=== PATIENT | female | born 1970 | race Caucasian/White ===

== ENCOUNTER 2025-05-08 11:01 | Emergency (ER) | payer BC, SELFPAY ==
[2025-05-08 11:03] VITALS: BP 128/80
--- NOTE | 2025-05-08 12:54 | ED.GENMED ---
History of Present Illness
<SARA Fuentes - Last Filed: 05/08/25 17:34>
General
Chief Complaint: Musculo-Skeletal Complaint
Source: patient
Exam Limitations: none
Time Seen by Provider: 05/08/25 12:02
Nursing documentation reviewed up to this point in time: agreed with
History of Present Illness
History of Present Illness:
55 yr old female presents to the ER for evaluation. Patient has a history of chondrosarcoma and right humerus and is followed by [facility] reconstructive surgery and trauma surgery. She had initial surgery August 2020 for however fell in
April and had additional surgery and reconstruction May 02(6 days ago). Patient was instructed to not remove the Shai wrap she was initially doing fine however for the past 3 days Friday and Friday she has had increasing pain which is not
relieved with oxycodone.
She denies any redness fever /chills.
She attempted to call DR Hare(trauma surg at [facility] ) without call back.
Phy Exam
<SARA Fuentes - Last Filed: 05/08/25 17:34>
General Physical Exam
General Presentation: no apparent distress
General age: appears stated age
General Skin: warm and dry
General Habitus: normal
Neurological Exam
Neurological Exam: alert and oriented x3
Musculoskeletal Exam
Musculoskeletal Exam: other (right arm with strong pulses + swelling to fingers intact sensation + dressing in place to upper arm )
Course
<SARA Fuentes - Last Filed: 05/08/25 17:34>
Orders/Labs/Results
Orders:
Orders
05/08/25 14:50
Venous Doppler Upr Ext Right [US Periph Venous UPPER Ext RT] Urgent
Comment:
Reason For Exam: pain s/p surg. do not remove dressing please
Vital Signs
Initial and Last Documented VS:
Initial Vital Signs
Temp Pulse Resp BP Pulse Ox
97.7 F 78 16 128/80 100
05/08/25 11:03 05/08/25 11:03 05/08/25 11:03 05/08/25 11:03 05/08/25 11:03
Last Documented Vital Signs
Temp Pulse Resp BP Pulse Ox
97.7 F 78 16 128/80 100
05/08/25 11:03 05/08/25 11:03 05/08/25 11:03 05/08/25 11:03 05/08/25 12:55
Wardrobe Coordinator consulted with Physician
Wardrobe Coordinator consulted with physician?: Yes
Name of Physician Consulted: Didier
<Osmin Velásquez MD - Last Filed: 05/08/25 14:53>
Orders/Labs/Results
Orders:
Orders
05/08/25 14:50
Venous Doppler Upr Ext Right [US Periph Venous UPPER Ext RT] Urgent
Comment:
Reason For Exam: pain s/p surg. do not remove dressing please
Vital Signs
Initial and Last Documented VS:
Initial Vital Signs
Temp Pulse Resp BP Pulse Ox
97.7 F 78 16 128/80 100
05/08/25 11:03 05/08/25 11:03 05/08/25 11:03 05/08/25 11:03 05/08/25 11:03
Last Documented Vital Signs
Temp Pulse Resp BP Pulse Ox
97.7 F 78 16 128/80 100
05/08/25 11:03 05/08/25 11:03 05/08/25 11:03 05/08/25 11:03 05/08/25 12:55
<SARA Fuentes - Last Filed: 05/08/25 17:34>
MDM/Problems Addressed
MDM/Problems Addressed:
Patient is a 55-year-old female with history chondrosarcoma, followed at [facility] status post recent surgery May 02. She had an Shai wrap in place her has had increasing pain requiring narcotics. She does complain of swelling to her hand but denies
any numbness tingling. She presents awake alert distress denies any fever chills she is nontoxic insert was removed patient does have intact dressing over incisional site however there is no surrounding redness to the area no other section.
Ultrasound negative.
With Shai wrapping removed patient is feeling much better likely that the Shai wrap was wrapped too tight.
DR Didier lind pt. Attemped multiple times to reach her ortho surgeon however no call back. Since pt is feeling better it is pain is likely from the Shai wrap. I did reapply Shai wrap however very loosely.
Patient swelling is much better.
Discussed for patient to call the office tomorrow and return for any worsening of symptoms
Chronic conditions affecting care:
Chondrosarcoma
<SARA Fuentes - Last Filed: 05/08/25 17:34>
*Radiology
Radiology exam reviewed: radiology read reviewed
*Pulse Oximetry
SaO2: 100
Oxygen Mode of Delivery: Room air
Patient hypoxic: no
*Critical Care Note
Total Time (30-74mins, 75-104mins- exclusive of procedures): Not Applicable
ED Attending Note
<SARA Fuentes - Last Filed: 05/08/25 17:34>
-
Portions of this chart may have been created with voice recognition software.� Occasional wrong word or��sound alike� substitutions may have occurred due to the inherent limitations of voice recognition software.
<Osmin eVlásquez MD - Last Filed: 05/08/25 14:53>
ED Attending Note
Patient seen and examined by attending physician: Yes
I performed the substantive portion of visit, reviewed & personally made and approve the management plan that is documented in note by myself or CONNIE.: Yes
ED Attending Note:
Right arm surgery 6 days ago. Was concerned with increased swelling and pain. She feels much better after reducing the Shai wrap. No new distal numbness or tingling. Chronic ulnar nerve issue. No fever or chills.
On exam the arm appears well. Dressing in place. No sign of any cellulitis surrounding the dressing. Mild swelling to the distal upper arm. Good distal pulses and color. Small area of ecchymosis to the dorsal hand. Nothing clinically to
suspect acute vascular issue or cellulitic issue. Suspect the increasing pain was a combination of the block wearing off along with swelling from the surgery. Will do ultrasound for completeness. Likely reassurance and close follow-up with her
orthopedist
Discharge Plan
Departure
Patient Disposition: Home (Routine Discharge)
Date of Disposition: 05/08/25
Time of Disposition: 17:16
Patient with high blood pressure during this ER visit?: Yes
Condition: Fair
Covid-19: Not Applicable
Discharge Problem:
Arm pain
Referrals:
Robert Rowley MD [Family Provider, Internal Medicine]
Activity Restrictions/Additional Instructions:
As discussed your arm pain was likely from the Shai wrap being on too tight. Your ultrasound was negative for DVT there is no evidence of infection on exam. Shai wrap was reapplied however very loosely. Please call your orthopedic surgeon tomorrow
for reevaluation. return if any worsening of symptoms.
Interventions
Interventions:
*Risk Screen - Suicide Last Done: 05/08/25 11:06
*Neglect/Abuse Screening Last Done: 05/08/25 11:06
Discharge Date and Time
Print Language: TRINIDADIAN
[2025-05-08 17:20] VITALS: BP 132/82
== END 2025-05-08 17:20 | disposition home or self-care (01) ==
LOC: EMR 11:01
PROVIDERS: EMERGENCY PHYSICIAN Emergency Medicine; FAMILY PHYSICIAN Internal Medicine
DX: M79.601 Pain in right arm (principal); M79.89 Other specified soft tissue disorders; R11.0 Nausea; R03.0 Elevated blood-pressure reading, without diagnosis of hypertension; C41.9 Malignant neoplasm of bone and articular cartilage, unspecified; G50.0 Trigeminal neuralgia; M35.00 Sjogren syndrome, unspecified; Z98.890 Other specified postprocedural states; Z90.49 Acquired absence of other specified parts of digestive tract; Z88.1 Allergy status to other antibiotic agents; Z91.048 Other nonmedicinal substance allergy status
CPT/HCPCS: 99284; 93971